=== PATIENT | female | born 1985 | race Two or more races ===

== ENCOUNTER 2020-08-29 13:10 | Day surgery (SDC) | payer OTHER ==
[~2020-08-29 13:10] MED LIST: HUMALOG; LEVEM; VITAMIN D310 MCG/1 M; [UNRECOGNIZED DRUG - OTHER] PO
== END 2020-08-30 00:02 | disposition home or self-care (01) ==
LOC: CIR.AMB 13:10
PROVIDERS: ATTEND Obstetrics & Gynecology Maternal & Fetal Medicine
DX: O02.1 Missed abortion (principal); Z20.828 Contact with and (suspected) exposure to other viral communicable diseases

== ENCOUNTER 2021-10-11 08:06 | Inpatient (IN) | payer OTHER ==
[~2021-10-11] VITALS: Ht 190.5 cm; Wt 84.4 kg
[2021-10-11] MEDS ORDERED: PRENATAL TABLE1 EAC1 PO (08:40)
[2021-10-11] MEDS ORDERED: NIFEDIPINE ER30 M1 (09:06)
[2021-10-11] MEDS ORDERED: HUMALOG SUBCUTANEO (10:23)
== END 2021-10-14 11:50 | disposition home or self-care (01) | DRG 788 ==
LOC: LDR 08:06 → SURG-SUITE 08:06
PROVIDERS: ADMIT Specialist; ATTEND Specialist
PROC: 4A1HXCZ Monitoring of Products of Conception, Cardiac Rate, External Approach (ICD-10-PCS; 2021-10-11)
PROC: 10D00Z1 Extraction of Products of Conception, Low, Open Approach (ICD-10-PCS; principal; 2021-10-11 14:00)
DX: O33.8 Maternal care for disproportion of other origin (principal); Z3A.38 38 weeks gestation of pregnancy; Z37.0 Single live birth

== ENCOUNTER 2022-06-16 08:46 | Emergency (ER) | payer OTHER ==
[~2022-06-16] VITALS: Ht 160 cm; Wt 71.2 kg
[~2022-06-16 08:46] MED LIST changes: +HUMALOG SUBCUTANEO; +NIFEDIPINE ER30 M1; +PRENATAL TABLE1 EAC1 PO
== END 2022-06-16 15:54 | disposition home or self-care (01) ==
LOC: ER 08:46
DX: N20.1 Calculus of ureter (principal); R10.9 Unspecified abdominal pain; E11.9 Type 2 diabetes mellitus without complications; Z79.4 Long term (current) use of insulin

== ENCOUNTER 2022-11-10 23:46 | Emergency (ER) | payer OTHER ==
[~2022-11-10] VITALS: Ht 160 cm; Wt 68.5 kg
== END 2022-11-11 05:27 | disposition home or self-care (01) ==
LOC: ER 23:46
DX: K52.9 Noninfective gastroenteritis and colitis, unspecified (principal); E11.9 Type 2 diabetes mellitus without complications; Z79.4 Long term (current) use of insulin

== ENCOUNTER 2023-09-28 08:00 | Emergency (ER) | payer OTHER ==
[~2023-09-28] VITALS: Ht 160 cm; Wt 67.6 kg
[2023-09-28 09:04] LABS: HEMATOCRIT 38.1 % (36.0-45.00); HEMOGLOBIN 12.8 g/dL (12.0-15.00); MEAN CELL VOLUME 86.8 fL (80.00-100.00); MEAN CORPUSCULAR HEMOGLOBIN 29.2 pg (27.00-32.0); MEAN CORPUSCULAR HGB CONC 33.7 g/dl (32.0-36.0); PLATELET COUNT 154 K/uL (150-450); RED BLOOD COUNT 4.39 M/uL (4.00-6.00); RED CELL DISTRIBUTION WIDTH 13.8 % (11.5-14.5)
[2023-09-28 09:53] LABS: PH,URINE 7.5 (5.0-8.0); URINE APPEARANCE Clear; URINE BILIRRUBIN Negative (NEGATIVE); URINE BLOOD Large; URINE COLOR Yellow; URINE GLUCOSE Negative (NEGATIVE); URINE LEUKOCYTE Trace; URINE NITRATE Negative; URINE PROTEIN Negative (NEGATIVE); URINE UROBILINOGEN 0.2 E.U./dl
[2023-09-28 10:01] LABS: URINE BACTERIA 124.7 uL (0.0-1933); URINE EPITHELIAL CELLS 14.9 uL (0.0-38.8); URINE RBC 61.5 uL (0.0-20.8); URINE WBC 29.8 uL (0.0-23.2)
== END 2023-09-28 12:50 | disposition home or self-care (01) ==
LOC: ER
PROVIDERS: General Practice
DX: O03.9 Complete or unspecified spontaneous abortion without complication (principal)

== ENCOUNTER 2023-10-22 13:28 | Emergency (ER) | payer OTHER ==
[~2023-10-22] VITALS: Ht 160 cm; Wt 68.0 kg
[2023-10-22] MEDS ORDERED: FAMOTIDINE/PF 20 MG in 0.9 % SODIUM CHLORIDE 8 ML IV PUSH STA (17:10)
[2023-10-22 17:11] LABS: HEMATOCRIT 42.5 % (36.0-45.00); HEMOGLOBIN 14.1 g/dL (12.0-15.00); MEAN CELL VOLUME 88.4 fL (80.00-100.00); MEAN CORPUSCULAR HEMOGLOBIN 29.3 pg (27.00-32.0); MEAN CORPUSCULAR HGB CONC 33.2 g/dl (32.0-36.0); PLATELET COUNT 176 K/uL (150-450); RED BLOOD COUNT 4.81 M/uL (4.00-6.00); RED CELL DISTRIBUTION WIDTH 13.7 % (11.5-14.5)
[2023-10-22] MEDS ORDERED: METOCLOPRAMIDE HCL 10 MG in 0.9 % SODIUM CHLORIDE 50 ML IV ONE (17:15)
[2023-10-22] MEDS ORDERED: KETOROLAC TROMETHAMINE 30 MG VIAL IV ONE (17:15)
[2023-10-22] MEDS ORDERED: 0.9 % SODIUM CHLORIDE 1,000 ML IV SCH (17:15)
[2023-10-22 17:49] LABS: BILIRUBIN TOTAL 0.74 mg/dL (0.3-1.2); CALCIUM 8.7 mg/dL (8.5-10.1); CREATININE SERUM 0.61 mg/dL (0.55-1.02); GFR 109.77; GLOBULINA 3.7 G/DL (2.4-3.5); POTASSIUM 3.53 mEq/L (3.5-5.1); TOTAL PROTEIN 7.7 gm/dL (6.4-8.2)
[2023-10-22] MEDS ORDERED: SUCRALFATE 1 G TABLET PO ONE (19:30)
[2023-10-22] MEDS ORDERED: MAG HYDROX/ALUMINUM HYD/SIMETH 30 ML BLIST.PACK PO ONE (19:30)
[2023-10-22] MEDS ORDERED: LIDOCAINE HCL 20 MG/ML ML MM ONE (19:30)
[2023-10-22] MEDS ORDERED: ONDANSETRON HCL 2 MG/ML VIAL IV ONE (19:45)
[2023-10-22] MEDS ORDERED: PEPCID AC20 MG PO (20:51)
[2023-10-22] MEDS ORDERED: ZOFRAN8 MG PO (20:51)
== END 2023-10-22 20:59 | disposition home or self-care (01) ==
LOC: ER 13:28
PROVIDERS: Emergency Medicine
DX: K52.9 Noninfective gastroenteritis and colitis, unspecified (principal); E11.9 Type 2 diabetes mellitus without complications; Z79.4 Long term (current) use of insulin